=== PATIENT | male | born 1990 ===

== ENCOUNTER 2017-04-14 18:57 | Emergency (ER) | payer OTHER ==
[2017-04-14 19:02] VITALS: BP 144/83; PULSE 68; RESP 18; TEMP 98.5; O2SAT 100
--- NOTE | 2017-04-14 19:52 | ED PDOC ---
HPI: General Adult Time Seen by Provider: 04/14/17 19:45 Chief Complaint (Nursing): Flu-like Symptoms Chief Complaint (Provider): Weakness History Per: Patient Additional Complaint(s): Pt is a 27 yo male, no PMH, presents to ED c/o generalized weakness,chills, body aches, sore throat x2 days. Pt seen and evaluated at Urgent care center 2 days ago and was started on Zithromax for his throat. Denies fever. Pt also requesting HIV test bc is is having sex with a partner who is HIV (+). Pt is using condoms as protection Past Medical History Reviewed: Nursing Documentation, Vital Signs Vital Signs: Last Vital Signs Temp 98.5 F 04/14/17 18:59 Pulse 68 04/14/17 18:59 Resp 18 04/14/17 18:59 BP 144/83 04/14/17 18:59 Pulse Ox 100 05/03/17 21:02 - Medical History PMH: No Chronic Diseases - Family History Family History: States: No Known Family Hx - Living Arrangements Living Arrangements: With Family - Social History Alcohol: Social Drugs: Denies - Allergies Allergies/Adverse Reactions: Allergies Allergy/AdvReac Type Severity Reaction Status Date / Time No Known Allergies Allergy Verified 04/14/17 18:59 Review of Systems ROS Statement: Except As Marked, All Systems Reviewed And Found Negative Constitutional: Positive for: Chills, Weakness, Malaise ENT: Positive for: Throat Pain Physical Exam - Reviewed Nursing Documentation Reviewed: Yes Vital Signs Reviewed: Yes - Physical Exam Appears: Positive for: Well, Non-toxic, No Acute Distress Head Exam: Positive for: ATRAUMATIC, NORMAL INSPECTION, NORMOCEPHALIC Skin: Positive for: Normal Color, Warm, DRY Eye Exam: Positive for: EOMI, Normal appearance, PERRL ENT: Positive for: Normal ENT Inspection Neck: Positive for: Normal, Painless ROM Cardiovascular/Chest: Positive for: Regular Rate, Rhythm Respiratory: Positive for: CNT, Normal Breath Sounds Gastrointestinal/Abdominal: Positive for: Normal Exam, Bowel Sounds, Soft Back: Positive for: Normal Inspection Extremity: Positive for: Normal ROM Neurologic/Psych: Positive for: Alert, Oriented - Laboratory Results Result Diagrams: 04/14/17 23:02 04/14/17 20:36 - ECG O2 Sat by Pulse Oximetry: 100 Medical Decision Making Medical Decision Making: all results discussed with Pt who demonstrated full understanding. Safe sex practices discussed as well Disposition - Clinical Impression Clinical Impression: Influenza-like symptoms - Patient ED Disposition Is Patient to be Admitted: No - Disposition Disposition: Routine/Home Disposition Time: 20:15 Condition: STABLE Instructions: Viral Syndrome (ED) Forms: [employer] ([place]bian)
[2017-04-14 20:48] LABS: ALB/GLOB RATIO 1.7 (1.0-2.1); ALKALINE PHOSPHATASE 51 U/L (38-126); ALT/SGPT 32 U/L (21-72); AST/SGOT 23 U/L (17-59); BILIRUBIN,TOTAL 0.3 mg/dl (0.2-1.3); BLOOD UREA NITROGEN 15 mg/dl (9-20); CALCIUM 9.7 mg/dL (8.4-10.2); CARBON DIOXIDE 29 mmol/L (22-30); CHLORIDE 102 mmol/L (98-107); GFR AFRICAN-AMERICAN > 60; GLUCOSE,RANDOM 94 mg/dL (75-110); POTASSIUM 4.5 MMOL/L (3.6-5.0); SODIUM 142 mmol/l (132-148); TOTAL PROTEIN 7.7 G/DL (6.3-8.2)
[2017-04-14 23:03] LABS: BASO % 0.9 % (0.0-2.0); EOS % 0.9 % (0.0-4.0); HEMATOCRIT 45.2 % (35.0-51.0); LYMPH % 35.1 % (20.0-40.0); MEAN CELL VOLUME 86.5 fl (80.0-94.0); MEAN CORPUSCULAR HEMOGLOBIN 28.8 pg (27.0-31.0); MEAN CORPUSCULAR HGB CONC 33.3 g/dL (33.0-37.0); MEAN PLATELET VOLUME 7.5 fl (7.2-11.7); MONO % 7.8 % (0.0-10.0); NEUT % 55.3 % (50.0-75.0); NRBC % 0.1 % (0.0-0.0); RED CELL DISTRIBUTION WIDTH 13.2 % (11.5-14.5); WHITE BLOOD COUNT 8.3 K/uL (4.8-10.8)
[2017-04-14 23:04] LABS: BASO # 0.1 K/uL (0.0-0.2); EOS # 0.1 K/uL (0.0-0.7); LYMPH # 2.9 K/uL (1.0-4.3); MONO # 0.6 K/uL (0.0-0.8); NEUT # 4.6 K/uL (1.8-7.0)
== END 2017-04-14 23:03 | disposition home or self-care (01) ==
LOC: H.ER 18:57
DX: J02.9 Acute pharyngitis, unspecified (principal); J11.1 Influenza due to unidentified influenza virus with other respiratory manifestations